=== PATIENT | female | born 1970 | race Caucasian/White ===

== ENCOUNTER 2016-09-23 17:59 | Emergency (ER) | payer OTHER ==
[~2016-09-23] VITALS: Ht 167.6 cm; Wt 75.5 kg
[~2016-09-23 17:59] MED LIST: ACET-820 PO; CEPH-443 PO; CIPR500T4 PO; IBUP-1542 PO; LOVA20TA PO; METF1000 PO; NORG1TAB6 PO; ZOF8 PO
[2016-09-23 18:14] VITALS: Ht 167.6 cm; Wt 75.5 kg
--- NOTE | 2016-09-24 00:35 | ERA ---
ER Documentation Chief Complaint Date/Time DATE: 09/24/16 TIME: 00:34 Chief Complaint Bilateral lower extremity numbness HPI The patient is a 45-year-old female, presenting to the ER because of multiple complaints. She complains of intermittent shortness of breath for a week, bilateral lower extremity numbness, bilateral arm numbness for 1 week, intermittent dizziness for the last 2 days, intermittent headache for the last 2 days. Her chief complaint tonight is bilateral lower extremity numbness. She was developed by her physician last week and is awaiting for neurologist evaluation. She denies fever, chills, neck pain, chest pain with exertion of vomiting or diaphoresis. She does not smoke, drinks socially, denies illicit drug. She used to take depression medication however she stopped them about 3 months ago Past medical history: Hypertension, diabetes mellitus, dyslipidemia, anxiety, depression, gastritis Past surgical history: 2 ROS All systems reviewed and are negative except as per history of present illness. Medications Home Meds Active Scripts Gabapentin* (Neurontin*) 100 Mg Capsule, 100 MG PO TID, #14 CAP Prov:ADARSH GARCIA MD 09/24/16 Ondansetron Hcl* (Zofran* ODT) 8 mg -ODT Tab.disper, 8 MG PO Q6 Y for NAUSEA AND /OR VOMITING, #10 TAB Prov:RITA MARX MD 11/02/14 Ciprofloxacin Hcl* (Ciprofloxacin Hcl*) 500 Mg Tablet, 500 MG PO BID for 7 Days , TAB Prov:RITA MARX MD 11/02/14 Acetaminophen-Codeine* (Tylenol No.4*) 300-60 Mg Tablet, 1 TAB PO Q4H Y for PAIN , #14 TAB Prov:RITA MARX MD 11/02/14 Ondansetron Hcl* (Zofran* ODT) 8 mg -ODT Tab.disper, 8 MG PO Q6 Y for NAUSEA AND /OR VOMITING, #10 TAB Prov:RITA MARX MD 09/23/14 Ibuprofen* (Motrin*) 600 Mg Tab, 600 MG PO Q6, #20 TAB Prov:RITA MARX MD 09/23/14 Cephalexin* (Keflex*) 500 Mg Capsule, 500 MG PO QID for 7 Days, CAP Prov:RITA MARX MD 09/23/14 Reported Medications Pnv#75/Iron Fum/Fa/Om3/Dha/Epa (ONE A DAY DHA PACK) 1 Each Combo..pkg, 1 EACH PO 09/24/16 Norgestimate-Ethinyl Estradiol (Tri-Linyah) 0.035-0.18 Mg Tablet, 1 TAB PO DAILY , TAB 09/23/14 Lovastatin* (Lovastatin*) 20 Mg Tablet, 20 MG PO HS, TAB 09/23/14 Metformin Hcl* (Metformin Hcl*) 1,000 Mg Tablet, 1000 MG PO BID, TAB 09/23/14 Allergies Allergies: Coded Allergies: No Known Allergy (Unverified , 09/23/14) PMhx/Soc History of Surgery: Yes (C-SECTIONx2) Anesthesia Reaction: No Hx Neurological Disorder: No Hx Cardiac Disorders: No Hx Miscellaneous Medical Probl: Yes (HIGH CHOLESTEROL, DIABETES TYPE 1, ANXIETY , gastritis) Hx Alcohol Use: Yes (2x/ year) Hx Substance Use: No Hx Tobacco Use: No Smoking Status: Never smoker Physical Exam Vitals Vital Signs Date Time Temp Pulse Resp B/P Pulse Ox O2 Delivery O2 Flow Rate FiO2 09/24/16 03:23 67 18 119/63 100 Room Air 09/24/16 01:33 70 15 105/66 100 Room Air 09/23/16 18:14 98.4 74 20 131/58 100 Physical Exam Const: No acute distress. Head: Atraumatic. Eyes: Normal Conjunctiva. ENT: Normal External Ears, Nose and Mouth. Neck: Full range of motion. No meningismus. Resp: Clear to auscultation bilaterally. Cardio: Regular rate and rhythm. Abd: Soft, non distended, normal bowel sounds, non tender. Skin: No petechiae or rashes. Back: No midline or flank tenderness. Ext: No cyanosis, or edema. Neur: Awake and alert. No focal deficit Psych: Normal Mood and Affect. Result Diagram: 09/24/16 0010 09/24/16 0010 Results 24 hrs Laboratory Tests Test 09/24/16 00:10 09/24/16 01:07 White Blood Count 10.010^3/ul Red Blood Count 4.1810^6/ul Hemoglobin 11.8g/dl Hematocrit 36.1% Mean Corpuscular Volume 86.4fl Mean Corpuscular Hemoglobin 28.2pg Mean Corpuscular Hemoglobin Concent 32.7g/dl Red Cell Distribution Width 12.9% Platelet Count 22756^3/UL Mean Platelet Volume 10.5fl Neutrophils % 49.1% Lymphocytes % 43.1% Monocytes % 4.0% Eosinophils % 2.3% Basophils % 0.3% Nucleated Red Blood Cells % 0.0/100WBC Neutrophils # 4.910^3/ul Lymphocytes # 4.310^3/ul Monocytes # 0.410^3/ul Eosinophils # 0.210^3/ul Basophils # 0.010^3/ul Nucleated Red Blood Cells # 0.010^3/ul Sodium Level 130mmol/L Potassium Level 4.2mmol/L Chloride Level 93mmol/L Carbon Dioxide Level 26mmol/L Anion Gap 15 Blood Urea Nitrogen 11mg/dl Creatinine 0.74mg/dl Glucose Level 139mg/dl Calcium Level 10.2mg/dl Total Bilirubin 0.2mg/dl Direct Bilirubin 0.00mg/dl Indirect Bilirubin 0.2mg/dl Aspartate Amino Transf (AST/SGOT) 22IU/L Alanine Aminotransferase (ALT/SGPT) 31IU/L Alkaline Phosphatase 115IU/L Total Protein 8.7g/dl Albumin 4.9g/dl Globulin 3.80g/dl Albumin/Globulin Ratio 1.28 Lipase 60U/L Bedside Urine pH (LAB) 5.5 Bedside Urine Protein (LAB) Negative Bedside Urine Glucose (UA) Negative Bedside Urine Ketones (LAB) Negative Bedside Urine Blood 1+ Bedside Urine Nitrite (LAB) Negative Bedside Urine Leukocyte Esterase (L Negative Current Medications Medications (Trade) Dose Ordered Sig/Paulie Route PRN Reason Start Time Stop Time Status Last Admin Dose Admin Ibuprofen (Motrin) 800 mg ONCE ONCE PO 09/24/16 02:00 09/24/16 02:01 DC 09/24/16 01:42 Procedures/MDM [place] [id number] Radiology Main Line: [phone] DIAGNOSTIC IMAGING REPORT Patient: RAISSA MELENDEZ : 1970 Age: 45 Sex: F MR #: [id number] DOS: 09/24/16 0042 Ordering MD: ADARSH GARCIA MD Location: E/R Room/Bed: PROCEDURE: XR Chest. CLINICAL INDICATION: Dyspnea. TECHNIQUE: Single frontal view of the chest. COMPARISON: 11/02/2014 FINDINGS: The cardiomediastinal silhouette is within normal limits. The lungs are clear. No signs of pleural fluid or pneumothorax are seen. The osseous structures and soft tissues are unremarkable. IMPRESSION: No evidence for active cardiopulmonary disease. RPTAT: [facility] Physician Alpesh Date Time Electronically viewed and signed by Physician Alpesh on 09/24/2016 01:05 RS/ CC: ADARSH GARCIA MD EKG: Read by emergency physician Rate/Rhythm: Normal Sinus Rhythm 87 beats/min QRS, ST, T-waves: No ST elevation, no T inversion, sinus arrhythmia Impression: Abnormal EKG MEDICAL MAKING DECISION: The patient is a 45-year-old female, presenting with probable diabetic neuropathy, chronic hematuria of unclear etiology. She is stable for outpatient follow-up The differential diagnoses considered include but are not limited to anxiety attack, panic attack, DVT, cellulitis Departure Diagnosis: Primary Impression: Diabetic neuropathy Additional Impressions: Hematuria Anemia Condition: Good Comments She was discharged with Neurontin I discussed the findings with the patient. I advised the patient to follow-up with the primary physician in about 1-2 days, sooner if needed and return if any concern. ADARSH GARCIA MD Sep 24, 2016 00:35
[2016-09-24 01:03] LABS: URINE BLOOD (Dip) POC 1+ (NEGATIVE)
--- NOTE | 2016-09-24 01:05 | RADRPT ---
PROCEDURE: XR Chest. CLINICAL INDICATION: Dyspnea. TECHNIQUE: Single frontal view of the chest. COMPARISON: 11/02/2014 FINDINGS: The cardiomediastinal silhouette is within normal limits. The lungs are clear. No signs of pleural f luid or pneumothorax are seen. The osseous structures and soft tissues are unremarkable. IMPRESSION: No evidence for active cardiopulmonary disease. RPTAT: [facility] Physician Alpesh Date Time Electronically viewed and signed by Manuel Henao Physician on 09/24/2016 01:05 RS/
[2016-09-24 01:33] LABS: ADD SCAN DIFF NO
[2016-09-24] MEDS ORDERED: PNV#1COM14 PO (01:35)
[2016-09-24 01:41] LABS: BASOPHILS % 0.3 % (0.0-2.0); EOSINOPHILS # 0.2 10^3/ul (0.0-0.5); EOSINOPHILS % 2.3 % (0.0-7.0); HEMATOCRIT 36.1 % (37.0-47.0); HEMOGLOBIN 11.8 g/dl (12.0-16.0); LYMPHOCYTES # 4.3 10^3/ul (0.8-2.9); LYMPHOCYTES % 43.1 % (15.0-51.0); MEAN CORPUSCULAR HEMOGLOBIN 28.2 pg (29.0-33.0); MEAN CORPUSCULAR HGB CONC 32.7 g/dl (32.0-37.0); MEAN CORPUSCULAR VOLUME 86.4 fl (82.0-101.0); MEAN PLATELET VOLUME 10.5 fl (7.4-10.4); MONOCYTE # 0.4 10^3/ul (0.3-0.9); NEUTROPHIL # 4.9 10^3/ul (1.6-7.5); NEUTROPHILS % 49.1 % (39.0-77.0); PLATELET COUNT 396 10^3/UL (140-415); RED BLOOD COUNT 4.18 10^6/ul (4.20-5.40); RED CELL DISTRIBUTION WIDTH 12.9 % (11.5-14.5)
[2016-09-24] MEDS ORDERED: IBUPROFEN 800 MG TAB PO ONE (02:00)
[2016-09-24 02:04] LABS: ALBUMIN 4.9 g/dl (3.3-4.9); ALBUMIN/GLOBULIN RATIO 1.28; BILIRUBIN,INDIRECT 0.2 mg/dl (0-1.1); BILIRUBIN,TOTAL 0.2 mg/dl (0.2-1.3); CALCIUM 10.2 mg/dl (8.4-10.2); CREATININE 0.74 mg/dl (0.44-1.00); POTASSIUM 4.2 mmol/L (3.5-5.1); TOTAL PROTEIN 8.7 g/dl (6.1-8.1)
[2016-09-24] MEDS ORDERED: GABA100C PO (02:50)
[2016-09-24 03:23] VITALS: BP 119/63; PULSE 67; RESP 18
== END 2016-09-24 03:24 | disposition home or self-care (01) ==
LOC: E/R 17:59
DX: E10.40 Type 1 diabetes mellitus with diabetic neuropathy, unspecified (principal); R31.9 Hematuria, unspecified; D64.9 Anemia, unspecified; I10 Essential (primary) hypertension
CPT/HCPCS: 36415; 71010; 80053; 81003; 83690; 85025; 93005; Z7502; Z7610

== ENCOUNTER → 2017-07-07 | Emergency (ER) | END | disposition home or self-care (01) ==

== ENCOUNTER 2017-10-02 23:48 | Emergency (ER) | END 2017-10-03 03:33 | disposition home or self-care (01) ==

== ENCOUNTER 2017-11-02 05:47 | Day surgery (SDC) | END 2017-11-02 12:02 | disposition home or self-care (01) ==

== ENCOUNTER 2017-11-30 12:08 | Day surgery (SDC) | END 2017-11-30 15:08 | disposition home or self-care (01) ==

== ENCOUNTER 2018-08-02 10:39 | Emergency (ER) | payer OTHER ==
[~2018-08-02] VITALS: Ht 160 cm; Wt 79.0 kg
[~2018-08-02 10:39] MED LIST changes: -ACET-820 PO; +ATORVASTATIN; +BC PILLS; -CEPH-443 PO; -CIPR500T4 PO; -IBUP-1542 PO; +LISINOPRIL; -LOVA20TA PO; -METF1000 PO; +METF100010 PO; -NORG1TAB6 PO; +OMEPRAZOLE; +RANITIDINE; -ZOF8 PO
[2018-08-02 11:11] VITALS: BP 133/71; PULSE 75; RESP 16; Ht 160 cm; Wt 79.0 kg
--- NOTE | 2018-08-02 12:25 | ERD ---
ER Documentation Chief Complaint Chief Complaint left leg pain and swelling, sent by PMD to r/o DVT HPI 47-year-old female referred by primary care provider for complaint of lower left extremity swelling and pain. Symptoms been going on for about a month now. In addition states is been having some mild intermittent chest pain. Currently on oral contraceptive pills. Denies any recent trauma to the leg. She is ambulatory. Denies malignancy, denies SOB, dyspnea, lower extremity swelling or pain, pain on exertion, diaphoresis, nausea, radiating of pain, recent corbin geries, recent travel or immobilization, hemoptysis, dsypnea, history of clotting disorder, syncope, fever, or cough. ROS All systems reviewed and are negative except as per history of present illness. Medications Home Meds Reported Medications [Atorvastatin] No Conflict Check 11/30/17 [Omeprazole] No Conflict Check 11/30/17 [Bc Pills] No Conflict Check 11/02/17 [Ranitidine] No Conflict Check 11/02/17 [Lisinopril] No Conflict Check 11/02/17 Metformin Hcl* (Metformin Hcl*) 1,000 Mg Tablet, 1000 MG PO BID, TAB 09/23/14 Allergies Allergies: Coded Allergies: No Known Allergy (Unverified , 10/02/17) PMhx/Soc History of Surgery: Yes () Anesthesia Reaction: No Hx Neurological Disorder: No Hx Respiratory Disorders: No Hx Cardiac Disorders: Yes (HTN, HYPERLIPIDEMIA) Hx Psychiatric Problems: Yes (ANXIETY) Hx Miscellaneous Medical Probl: No Hx Alcohol Use: No Hx Substance Use: No Hx Tobacco Use: No Smoking Status: Never smoker FmHx Family History: No diabetes, No coronary disease, No other Physical Exam Vitals Vital Signs Date Temp Pulse Resp B/P (MAP) Pulse Ox O2 O2 Flow FiO2 Time Delivery Rate 08/02/18 98.2 75 16 133/71 99 11:11 (91) Physical Exam Const: No acute distress Head: Atraumatic Eyes: Normal Conjunctiva ENT: Normal External Ears, Nose and Mouth. Neck: Full range of motion. No meningismus. Resp: Clear to auscultation bilaterally Cardio: Regular rate and rhythm, no murmurs Abd: Soft, non tender, non distended. Normal bowel sounds Skin: No petechiae or rashes Back: No midline or flank tenderness Ext: No cyanosis, or edema. Moderate swelling and tenderness palpation of the dorsal aspect of left foot with no underlying bony deformity noted. There is no erythema or ecchymosis noted. There are varicose veins noted to the ankle and foot. Distal sensation is intact. Pedal pulses intact. Range of motion intact. Neur: Awake and alert Psych: Normal Mood and Affect Results 24 hrs Laboratory Tests Test 08/02/18 12:29 POC Beta HCG, Qualitative NEGATIVE Procedures/MDM EKG: Rate/Rhythm: Normal Sinus Rhythm QRS, ST, T-waves: No changes consistent w/ acute ischemia Impression: No evidence of ischemia or arrhythmia DIAGNOSTIC IMAGING REPORT Patient: RAISSA MELENDEZ : 1970 Age: 47 Sex: F MR #: [id number] DOS: 08/02/18 120 Ordering MD: AMBER SHAFFER Location: FTE Room/Bed: PROCEDURE: US Lower extremity Venous. CLINICAL INDICATION: leg edema TECHNIQUE: Multiple sonographic images of the left lower extremity deep venous system was obtained utilizing grayscale, color-flow, compressive sonography and doppler imaging with augmentation. The images were reviewed on a PACS workstation. COMPARISON: None. FINDINGS: There is normal compressibility and flow within the left common femoral, femoral, posterior tibial, peroneal and popliteal veins. RPTAT: AA IMPRESSION: No sonographic evidence for deep venous thrombosis. .Fredrick Rodrigez MD, Date Time Electronically viewed and signed by .Fredrick Rodrigez MD, on 08/02/2018 13:05 .S/ CC: AMBER SHAFFER [id number] DIAGNOSTIC IMAGING REPORT Patient: RAISSA MELENDEZ : 1970 Age: 47 Sex: F MR #: [id number] DOS: 08/02/187 Ordering MD: AMBER SHAFFER Location: FTE Room/Bed: PROCEDURE: XR Foot. CLINICAL INDICATION: Left foot pain and swelling TECHNIQUE: 3 views of the left foot are available for review. COMPARISON: None available FINDINGS: The osseous structures demonstrate normal alignment and mineralization. No acute fracture or dislocation is seen. There is no periostitis or osteochondral lesion identified. The joint spaces are well preserved. The soft tissues are unremarkable. IMPRESSION: Unremarkable left foot x-ray series. RPTAT: HH .Cecelia Osullivan MD, MD Date Time Electronically viewed and signed by .Cecelia Osullivan MD, MD on 08/02/2018 12:57 .G/ CC: [email or web address] [id number] MDM: Ultrasound and x-ray are within normal limits. Patient most likely has venous insufficiency which accounts for her varicose veins in that area. I have low suspicion for neurovascular compromise, DVT, compartment syndrome, fracture, osteomyelitis, septic joint, or other emergent condition. In addition, patient has a very low Wells score which is not very drawing a d- dimer. Patient discharged with strict ER precautions. Patient advised to follow up with PMD. All questions answered at discharge. Departure Diagnosis: Primary Impression: Venous insufficiency Condition: Stable AMBER SHAFFER August 02, 2018 12:25
== END 2018-08-02 13:46 | disposition left against medical advice (07) ==
LOC: FTE 10:39
DX: I87.2 Venous insufficiency (chronic) (peripheral) (principal); I10 Essential (primary) hypertension
CPT/HCPCS: 81025; 93005; 93971

== ENCOUNTER 2018-10-06 23:17 | Emergency (ER) | payer OTHER ==
[~2018-10-06] VITALS: Ht 180.3 cm; Wt 79.1 kg
[2018-10-06 23:25] VITALS: Ht 180.3 cm; Wt 79.1 kg
--- NOTE | 2018-10-07 02:00 | ERD ---
ER Documentation Chief Complaint Chief Complaint neck pain causing headaches and dizziness and nausea HPI The patient is a 48-year-old female, presenting to the ER because of left-sided neck pain radiating up to the left side of the head intermittently for the last 3 weeks, dizziness, nausea but no vomiting. She had similar symptoms previously for migraine attack. He denies fever, blurred vision, chest pain, dyspnea, abdominal pain, vomiting, dysuria, diarrhea. She does not smoke nor drink Past medical history: Diabetes mellitus, dyslipidemia, hypertension, anxiety, depression, migraine, gastritis, polycystic ovarian syndrome Sickle history: , left lower extremity varicosis vein ROS All systems reviewed and are negative except as per history of present illness. Medications Home Meds Active Scripts Meclizine Hcl* (Antivert*) 12.5 Mg Tab, 25 MG PO Q6H PRN for DIZZINESS, #20 TAB Prov:ADARSH GARCIA MD 10/07/18 Ibuprofen* (Motrin*) 600 Mg Tab, 600 MG PO Q6H PRN for PAIN AND OR ELEVATED TEMP, #20 TAB Prov:ADARSH GARCIA MD 10/07/18 Amoxicillin* (Amoxicillin*) 500 Mg Cap, 500 MG PO TID for 7 Days, CAP Prov:ADARSH GARCIA MD 10/07/18 Reported Medications [Atorvastatin] No Conflict Check 11/30/17 [Omeprazole] No Conflict Check 11/30/17 [Bc Pills] No Conflict Check 11/02/17 [Ranitidine] No Conflict Check 11/02/17 [Lisinopril] No Conflict Check 11/02/17 Metformin Hcl* (Metformin Hcl*) 1,000 Mg Tablet, 1000 MG PO BID, TAB 09/23/14 Allergies Allergies: Coded Allergies: No Known Allergy (Unverified , 10/02/17) PMhx/Soc History of Surgery: Yes () Anesthesia Reaction: No Hx Neurological Disorder: No Hx Respiratory Disorders: No Hx Cardiac Disorders: Yes (HTN, HYPERLIPIDEMIA) Hx Psychiatric Problems: Yes (ANXIETY) Hx Miscellaneous Medical Probl: No Hx Alcohol Use: No Hx Substance Use: No Hx Tobacco Use: No Physical Exam Vitals Vital Signs Date Temp Pulse Resp B/P (MAP) Pulse Ox O2 O2 Flow FiO2 Time Delivery Rate 10/07/18 98.1 67 18 106/58 98 Room Air 04:15 (74) 10/07/18 72 21 111/56 99 Room Air 03:00 (74) 10/07/18 66 18 115/72 99 Room Air 02:35 (86) 10/07/18 69 18 107/62 100 Room Air 02:00 (77) 10/06/18 98.4 77 18 118/71 100 23:25 (87) Physical Exam Const: No acute distress. Head: Atraumatic. Eyes: Normal Conjunctiva. ENT: Normal External Ears, Nose and Mouth. Left frontal and left maxillary sinus tenderness, bilateral tympanic membranes are within normal limit Neck: Full range of motion. No meningismus. Resp: Clear to auscultation bilaterally. Cardio: Regular rate and rhythm. Abd: Soft, non distended, normal bowel sounds, non tender. Skin: No petechiae or rashes. Back: No midline or flank tenderness. Ext: No cyanosis, or edema. Neur: Awake and alert. No focal deficit Psych: Normal Mood and Affect. Result Diagram: 10/07/18 0237 10/07/18 0237 Results 24 hrs Laboratory Tests Test 10/07/18 02:37 10/07/18 02:56 White Blood Count 5.9 10^3/ul Red Blood Count 3.99 10^6/ul Hemoglobin 10.5 g/dl Hematocrit 33.2 % Mean Corpuscular Volume 83.2 fl Mean Corpuscular Hemoglobin 26.3 pg Mean Corpuscular Hemoglobin Concent 31.6 g/dl Red Cell Distribution Width 14.3 % Platelet Count 421 10^3/UL Mean Platelet Volume 10.4 fl Immature Granulocytes % 0.300 % Neutrophils % 35.5 % Lymphocytes % 54.0 % Monocytes % 5.6 % Eosinophils % 4.1 % Basophils % 0.5 % Nucleated Red Blood Cells % 0.0 /100WBC Immature Granulocytes # 0.020 10^3/ul Neutrophils # 2.1 10^3/ul Lymphocytes # 3.2 10^3/ul Monocytes # 0.3 10^3/ul Eosinophils # 0.2 10^3/ul Basophils # 0.0 10^3/ul Nucleated Red Blood Cells # 0.0 10^3/ul Prothrombin Time 11.3 Sec Prothrombin Time Ratio 0.9 INR International Normalized Ratio 0.81 Activated Partial Thromboplast Time 25.4 Sec Sodium Level 139 mmol/L Potassium Level 4.7 mmol/L Chloride Level 105 mmol/L Carbon Dioxide Level 22 mmol/L Anion Gap 12 Blood Urea Nitrogen 17 mg/dl Creatinine 1.01 mg/dl Est Glomerular Filtrat Rate mL/min 59 mL/min Glucose Level 319 mg/dl Calcium Level 10.3 mg/dl Beta HCG, Quantitative < 2.4 mIU/ml POC Beta HCG, Qualitative NEGATIVE Current Medications Medications Dose Sig/Paulie Start Time Status Last (Trade) Ordered Route PRN Stop Time Admin Dose Reason Admin Ondansetron 4 mg ONCE STAT 10/07/18 DC 10/07/18 HCl (Zofran ODT 02:10 03:17 Odt) 10/07/18 02:12 Meclizine 25 mg ONCE ONCE 10/07/18 DC 10/07/18 HCl PO 02:30 03:17 (Antivert) 10/07/18 02:31 1 tab ONCE ONCE 10/07/18 DC 10/07/18 Acetaminophen PO 03:00 03:17 / 10/07/18 03:01 Hydrocodone Bitart (Upton ()) Procedures/MDM EKG: Read by emergency physician Rate/Rhythm: Normal Sinus Rhythm 65 beats/min QRS, ST, T-waves: No ST elevation, no T inversion Impression: Normal EKG [place] [id number] Radiology Main Line: [phone] DIAGNOSTIC IMAGING REPORT Patient: RAISSA MELENDEZ : 1970 Age: 48 Sex: F MR #: [id number] DOS: 10/07/180 Ordering MD: ADARSH GARCIA MD Location: E/R Room/Bed: PROCEDURE: CT BRAIN CLINICAL INDICATION: Headache. TECHNIQUE: Contiguous axial imaging was performed from the skull base to the vertex without contrast. Coronal and sagittal reformatting was utilized. DICOM images are available. CTDIvol: 38.77 mGy mGy. Total Exam DLP: 634.23 mGy.cm mGy-cm. This CT exam was performed using one or more of the following dose reduction techniques: Automated exposure control, adjustment of the mA and/or kV according to patient size, use of iterative reconstruction technique. COMPARISON: September 23, 2014 FINDINGS: PARENCHYMA: No parenchymal lesions are identified. There is no hydrocephalus. EXTRA-AXIAL SPACE: No hemorrhage is seen. VASCULATURE: Unremarkable for this non-angiographic study. OSSEOUS STRUCTURES: Calvarium is intact. VISUALIZED PARANASAL SINUSES/MASTOID AIR CELLS: Clear. VISUALIZED ORBITAL CONTENTS: Preserved. IMPRESSION: 1. No acute intracranial abnormalities. RPTAT:[facility] Raghav Tsai, Physician Date Time Electronically viewed and signed by Raghav Tsai, Physician on 10/07/2018 03:18 GT/ CC: ADARSH GARCIA MD [id number] MEDICAL MAKING DECISION: The patient is a 48-year-old female, presenting with acute sudden headache, acute sinusitis. She was treated with Antivert 25 mg p.o. for dizziness, Zofran ODT for nausea, Upton 10 mg p.o. for headache with good response, is above outpatient follow-up The differential diagnoses considered include but are not limited to sinusitis, subarachnoid hemorrhage, occult trauma, CVA, meningitis, encephalitis, hy pertension, tension, migraine, cluster, narcotic withdrawal, cervical spine disease. Departure Diagnosis: Primary Impression: Sinusitis Additional Impressions: Sinus headache Anemia Condition: Good Comments She was discharged with amoxicillin, Motrin, Antivert I discussed the findings with the patient. I advised the patient to follow-up with the primary physician in about 1-2 days, sooner if needed and return if any concern. Disclaimer: Inadvertent spelling and grammatical errors are likely due to EHR/dictation software use and do not reflect on the overall quality of patient care. Also, please note that the electronic time recorded on this note does not necessarily reflect the actual time of the patient encounter. ADARSH GARCIA MD Oct 07, 2018 02:00
[2018-10-07] MEDS ORDERED: ONDANSETRON (ODT) 4 MG TAB ODT STA (02:10)
[2018-10-07] MEDS ORDERED: MECLIZINE 12.5 MG TAB PO ONE (02:30)
[2018-10-07] MEDS ORDERED: HYDROCODONE/APAP (10/325) TAB PO ONE (03:00)
[2018-10-07] MEDS ORDERED: MECL12.574 PO (03:54)
[2018-10-07] MEDS ORDERED: IBUP-1542 PO (03:54)
[2018-10-07] MEDS ORDERED: AMOX500C2 PO (03:54)
[2018-10-07 04:15] VITALS: BP 106/58; PULSE 67; RESP 18
== END 2018-10-07 04:15 | disposition home or self-care (01) ==
LOC: E/R 23:17
DX: J32.9 Chronic sinusitis, unspecified (principal); D64.9 Anemia, unspecified; I10 Essential (primary) hypertension; E11.9 Type 2 diabetes mellitus without complications; Z79.84 Long term (current) use of oral hypoglycemic drugs
CPT/HCPCS: 70450; 80048; 81025; 84702; 85025; 85610; 85730; Z7610; 36415; 93005